=== PATIENT | male | born 1985 | race Caucasian/White ===

== ENCOUNTER 2018-03-11 15:29 | Emergency (ER) | payer SELFPAY ==
--- NOTE | 2018-03-11 16:54 | RADIOLOGY REPORT (SQ) ---
EXAM DESCRIPTION: CT HEAD WITHOUT COMPLETED DATE/TIME: 03/11/2018 4:43 pm REASON FOR STUDY: sz bruising to orbit right COMPARISON: None. TECHNIQUE: Axial images acquired through the brain without intravenous contrast. Images reviewed wi th bone, brain and subdural windows. Additional sagittal and coronal reconstructions were generated. Images stored on PACS. All CT scanners at this facility use dose modulation, iterative reconstruction, and/or weight based d osing when appropriate to reduce radiation dose to as low as reasonably achievable (ALARA). [facility]: Dose Right [facility]: CareDose [facility]: Dose Right [facility]: Teradose 4D [facility]: Smart Tebla RADIATION DOSE: CT Rad equipment meets quality standard of care and radiation dose reduction techniq ues were employed. CTDIvol: 53.2 mGy. DLP: 1070 mGy-cm. mGy. LIMITATIONS: None. FINDINGS: VENTRICLES: Normal size and contour. CEREBRUM: No masses. No hemorrhage. No midline shift. No evidence for acute infarction. Normal gra y/white matter differentiation. No areas of low density in the white matter. CEREBELLUM: No masses. No hemorrhage. No alteration of density. No evidence for acute infarction. EXTRAAXIAL SPACES: No fluid collections. No masses. ORBITS AND GLOBE: No intra- or extraconal masses. Normal contour of globe without masses. CALVARIUM: No fracture. PARANASAL SINUSES: No fluid or mucosal thickening. SOFT TISSUES: No mass or hematoma. OTHER: No other significant finding. IMPRESSION: NORMAL BRAIN CT WITHOUT CONTRAST. EVIDENCE OF ACUTE STROKE: NO. COMMENT: Quality ID # [id number]: Final reports with documentation of one or more dose reduction techniques (e.g., Automated exposure control, adjustment of the mA and/or kV according to patient size, use of iterative reconstruction technique) TECHNICAL DOCUMENTATION: JOB ID: [id number] [employer]- All Rights Reserved Reading location - IP/workstation name: [email or web address]
[2018-03-11 16:57] LABS: CALCIUM 9.6 mg/dL (8.4-10.2); GLUCOSE 86 mg/dL (75-110)
[2018-03-11 16:58] LABS: ANION GAP 10 (5-19); BLOOD UREA NITROGEN 9 mg/dL (7-20); CARBON DIOXIDE 30 mmol/L (22-30); CHLORIDE 105 mmol/L (98-107); POTASSIUM 3.9 mmol/L (3.6-5.0); SODIUM 145.2 mmol/L (137-145)
--- NOTE | 2018-03-11 17:50 | ER Document Report ---
ED General - General Chief Complaint: Probable Seizure Stated Complaint: POSSIBLE SEIZURE/FACIAL INJURY Time Seen by Provider: 03/11/18 16:25 TRAVEL OUTSIDE OF THE [place] IN LAST 30 DAYS: No - HPI Patient complains to provider of: Seizure Notes: Patient coming in states he had a seizure earlier today fellhitting his right orbit comes in with bruising concerned that he may have underlying fracture. Patient states last time he has seizures many years ago. Patient states most of his seizure and stress-induced no medication at this time tries to avoid stress. Denies any fever chills nausea vomiting diarrhea patient is a no 3 upon my evaluation. - Related Data Allergies/Adverse Reactions: No Known Allergies Allergy (Verified 03/11/18 15:34) Past Medical History - Social History Smoking Status: Current Every Day Smoker Chew tobacco use (# tins/day): No Frequency of alcohol use: None Drug Abuse: Marijuana Family History: Reviewed & Not Pertinent Patient has suicidal ideation: No Patient has homicidal ideation: No Neurological Medical History: Reports: Hx Seizures Renal/ Medical History: Denies: Hx Peritoneal Dialysis Psychiatric Medical History: Reports: Hx Bipolar Disorder, Hx Depression Review of Systems - Review of Systems Constitutional: Other - Facial trauma EENT: No symptoms reported Cardiovascular: No symptoms reported Respiratory: No symptoms reported Gastrointestinal: No symptoms reported Genitourinary: No symptoms reported Male Genitourinary: No symptoms reported Musculoskeletal: No symptoms reported Skin: No symptoms reported Hematologic/Lymphatic: No symptoms reported Neurological/Psychological: No symptoms reported Physical Exam - Vital signs Vitals: Temp Pulse Resp BP Pulse Ox 98.5 F 75 18 128/72 H 98 03/11/18 15:43 03/11/18 15:43 03/11/18 15:43 03/11/18 15:43 03/11/18 15:43 Interpretation: Normal - General General appearance: Appears well, Alert - HEENT Head: Normocephalic, [place]'s eyes - Bruising to the right orbit with pain and tenderness circumferential of the orbit to palpation Eyes: Normal, Pale conjunctiva Conjunctiva: Normal Cornea: Normal Extraocular movements intact: Yes Eyelashes: Normal Pupils: PERRL - Respiratory Respiratory status: No respiratory distress Chest status: Nontender Breath sounds: Normal Chest palpation: Normal - Cardiovascular Rhythm: Regular Heart sounds: Normal auscultation Murmur: No - Abdominal Inspection: Normal Distension: No distension Bowel sounds: Normal Tenderness: Nontender Organomegaly: No organomegaly - Back Back: Normal, Nontender - Extremities General upper extremity: Normal inspection, Nontender, Normal color, Normal ROM , Normal temperature General lower extremity: Normal inspection, Nontender, Normal color, Normal ROM , Normal temperature, Normal weight bearing. No: Long's sign - Neurological Neuro grossly intact: Yes Cognition: Normal Orientation: AAOx4 Lopez Coma Scale Eye Opening: Spontaneous [place] Coma Scale Verbal: Oriented [place] Coma Scale Motor: Obeys Commands [place] Coma Scale Total: 15 Speech: Normal Motor strength normal: LUE, RUE, LLE, RLE Sensory: Normal - Psychological Associated symptoms: Normal affect, Normal mood - Skin Skin Temperature: Warm Skin Moisture: Dry Skin Color: Normal Course - Re-evaluation Re-evalutation: 03/11/18 20:42 CT negative basic lab work shows slightly elevation in the patient's sodium otherwise patient neurologically intact will discharge home follow-up primary care physician. - Vital Signs Vital signs: Temp Pulse Resp BP Pulse Ox 98.5 F 74 18 134/72 H 100 03/11/18 15:43 03/11/18 17:51 03/11/18 17:51 03/11/18 17:51 03/11/18 17:51 - Laboratory Result Diagrams: 03/11/18 16:35 Laboratory results interpreted by me: 03/11/18 16:35 Sodium 145.2 H Discharge - Discharge Clinical Impression: Seizure Black eye of right side Qualifiers: Encounter type: initial encounter Qualified Code(s): S00.11XA - Contusion of right eyelid and periocular area, initial encounter Condition: Good Disposition: HOME, SELF-CARE Instructions: Eye Socket Trauma ([facility]), Seizure, Known Epileptic ([facility]) Additional Instructions: Your laboratory studies today do not show any signs of significant pathology. Please make sure you are drinking plenty water to stay hydrated. CAT scan of the head does not show any signs of acute intracranial injury no signs of orbital fracture. He can apply ice and warm packs to the area of injury to help out with pain. Also recommend taking Tylenol and Motrin. Return to ER if symptoms worsen. Prescriptions: Ibuprofen [Motrin 600 Mg Tablet] 600 mg PO TID #15 tablet
[2018-03-11 17:56] VITALS: BP 134/72
== END 2018-03-11 17:51 | disposition home or self-care (01) ==
LOC: ER 15:29
DX: R56.9 Unspecified convulsions (principal); S00.11XA Contusion of right eyelid and periocular area, initial encounter; W19.XXXA Unspecified fall, initial encounter; F17.200 Nicotine dependence, unspecified, uncomplicated
CPT/HCPCS: 36415; 70450; 80048; 99284